=== PATIENT | male | born 1990 | race African-American/Black ===

== ENCOUNTER 2022-06-30 13:40 | Emergency (ER) | payer SELFPAY ==
--- NOTE | ~2022-06-30 | CT_ITS ---
EXAMINATION: CT facial & cervical spine wo DATE: 06/30/2022 14:33 INDICATION: Face injury. TECHNIQUE: Computed tomography (CT) of the maxillofacial region and cervical spine was performed with out intravenous contrast. Automated exposure control and iterative reconstruction technique were empl oyed. The dose-length product was 413.59 mGy-cm. COMPARISON: None FINDINGS: MAXILLOFACIAL CT: There is frontal scalp soft tissue swelling. The orbits are normal. There is rightward deviation of t he nasal septum. No fracture. There is mild mucosal thickening in the paranasal sinuses. The mastoid air cells are normal. There are carious lesions involving mandibular molars bilaterally. CERVICAL SPINE CT: C1 ring is ununited posteriorly, a normal variant. Bone alignment is normal. Vertebral body heights a nd intervertebral disc heights are normal. There is multilevel mild facet joint osteoarthritis. No ne ural foraminal stenosis or central canal stenosis. IMPRESSION: 1. No fracture. 2. Dental disease. Reviewed, dictated and finalized at location E.
--- NOTE | ~2022-06-30 | CT_ITS ---
EXAMINATION: CT brain wo con INDICATION: Head injury COMPARISON: None TECHNIQUE: Standard unenhanced head CT. The dose-length product (DLP) was 605.33 mGy-cm. The mA was a djusted according to patient size. Iterative reconstruction technique was employed. FINDINGS: There is a frontal scalp hematoma. There is no intracranial hemorrhage, acute infarction, o r abnormal mass lesion. The ventricles are normal. There is no abnormal mass effect or midline shift. The lloyd-white matter differentiation is normal. The basal cisterns are patent. The orbits are teo l. There is mild mucosal thickening of the paranasal sinuses. IMPRESSION: 1. No acute intracranial abnormality. Reviewed, dictated and finalized at location B.
[2022-06-30 14:09] VITALS: BP 107/70; PULSE 79; RESP 20; TEMP 36.4; O2SAT 99
[2022-06-30 16:07] VITALS: BP 126/72; PULSE 82; TEMP 36.8; O2SAT 100
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
[2022-06-30 19:49] VITALS: BP 133/72; PULSE 66; RESP 15; TEMP 36.6; O2SAT 100
== END 2022-06-30 19:50 | disposition home or self-care (01) ==
PROVIDERS: Emergency Provider Physician Assistant
DX: S06.0X0A Concussion without loss of consciousness, initial encounter (principal); S00.83XA Contusion of other part of head, initial encounter; W01.0XXA Fall on same level from slipping, tripping and stumbling without subsequent striking against object, initial encounter
CPT/HCPCS: 70450; 70486; 72125; 99284